=== PATIENT | male | born 1995 | race African-American/Black ===

== ENCOUNTER 2020-08-27 23:55 | Emergency (ER) | payer OTHER, SELFPAY ==
--- OUTSIDE RECORDS SUMMARY | 2020-08-27 23:57 | XMS REPORT | Continuity of Care Document ---
:1995 Author Organization [facility] t Address [address] [place] [address] Care Team Providers Name Role Phone Zakia Mckeon DO Attending Clinician Problems This patient has no known problems. Allergies, Adverse Reactions, Alerts This patient has no known allergies or adverse reactions. Medications This patient has no known medications. Procedures This patient has no known procedures. Encounters Start End Encounter Admission Attending Care Care Encounter Source Date/Time Date/Time Type Type Clinicians Facility Department ID 2019-12-23 2019-12-24 Emergency [facility] [id number] 21:39:00 00:35:00 Luz Jacobo [id number] [facility] [id number] [place] [id number] Results This patient has no known results.
[2020-08-28] MEDS ORDERED: NA CHLORIDE 0.9% 2,000 ML ONE (00:36)
[2020-08-28 00:56] LABS: Absolute Lymphocytes (CBC) 1.7 K/uL (0.7-4.9); Basophils % 0.3 % (0-1.3); Hematocrit 45.7 % (39.6-49.0); Lymphocytes % 10.7 % (15.3-44.8); MPV 8.1 fL (7.6-11.3); RBC Red Blood Cell Count 4.98 M/uL (4.33-5.43)
[2020-08-28 01:07] LABS: Protime INR 1.11
[2020-08-28 01:29] LABS: Albumin 4.7 g/dL (3.4-5.0); Bilirubin Direct 0.3 mg/dL (0-0.2); Bilirubin Total 1.7 mg/dL (0.2-1.0); Protein, Total 8.8 g/dL (6.4-8.2)
[2020-08-28 01:30] LABS: Potassium 3.5 mmol/L (3.5-5.1)
[2020-08-28] MEDS ORDERED: NA CHLORIDE 0.9% 1,000 ML ONE (02:46)
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
[2020-08-28 12:20] VITALS: BP 118/93; TEMP 98.2; O2SAT 97
--- NOTE | 2020-08-28 12:46 | EKG ---
Test Date: 2020-08-28 Test Time: 00:23:28 [employer] Leader: MARIE MEASUREMENT RESULTS: Intervals: Rate: 100 OK: 134 QRSD: 124 QT: 384 QTc: 495 [place]: P: 79 OK: 134 QRS: 93 T: 42 INTERPRETIVE STATEMENTS: Normal sinus rhythm Right bundle branch block Abnormal ECG No previous ECG available for comparison Electronically Signed On 08-28-20 12:45:20 CDT by Eldon Gill
--- NOTE | 2020-08-28 13:17 | RAD REPORT ---
EXAM DESCRIPTION: CT - Head C Spine Cap W Con - 08/28/2020 6:32 am ADDENDUM #1 THIS REPORT CONTAINS FINDINGS THAT MAY BE CRITICAL TO PATIENT CARE: The findings were verbally discus sed via telephone conference with Dr. Speedy Goyal on 08/28/2020 3:20 AM CDT. The results were ackn owledged and understood. Electronically signed by: Fernando Alvarez MD 08/28/2020 3:20 AM CDT End of Addendum EXAM DESCRIPTION: CT HEAD WITHOUT IV CONTRAST CLINICAL HISTORY: PAIN TECHNIQUE: Contiguous axial CT images obtained through the brain without IV contrast. Coronal and sa gittal reformatted images were provided. This exam was performed according to our departmental dose-optimization program, which includes autom ated exposure control, adjustment of the mA and/or kV according to patient size and/or use of iterati ve reconstruction technique. COMPARISON: None available for comparison FINDINGS: Brain: No significant white matter changes. No focal mass effect. Joshi-white matter differ entiation is within normal limits. No hemorrhage. Ventricles: No ventriculomegaly or midline shift. Extra-axial spaces: No extra-axial collection or hemorrhage. Paranasal sinuses and mastoid air cells: Mild left maxillary sinus mucosal thickening. Vessels: Unremarkable Bones: Unremarkable Soft tissues: Mild right occipital soft tissue swelling. PROCEDURE: CT CERVICAL SPINE WITHOUT IV CONTRAST CLINICAL HISTORY: PAIN TECHNIQUE: Contiguous axial CT images obtained through the cervical spine without IV contrast. Coron al and sagittal reformatted images also provided. This exam was performed according to our departmental dose-optimization program, which includes autom ated exposure control, adjustment of the mA and/or kV according to patient size and/or use of iterati ve reconstruction technique. COMPARISON: None available for comparison FINDINGS: Vertebra: No acute fracture or subluxation. Disc spaces: Intervertebral disc spaces are fairly well maintained. Mild anterior osteophytic lipping at C5-C6. No canal stenosis. Prevertebral soft tissues: Unremarkable EXAM DESCRIPTION: CT CHEST WITH IV CONTRAST CLINICAL HISTORY: PAIN TECHNIQUE: Contiguous axial images obtained through the chest following the uneventful administratio n of IV contrast. Coronal and sagittal reformatted images provided. This exam was performed according to our departmental dose-optimization program, which includes autom ated exposure control, adjustment of the mA and/or kV according to patient size and/or use of iterati ve reconstruction technique. COMPARISON: No prior exams provided for comparison. FINDINGS: Lungs: Scattered right apical and lower lobe groundglass opacities. Airways are patent. Pleura: No effusion. Tiny left pneumothorax. Heart and pericardium: The heart is normal in size. No pericardial effusion. Mediastinum and gilda: Soft tissue density within the anterior superior mediastinum. No pathologically enlarged lymph nodes. Lower neck and chest wall: Soft tissue gas foci along the lateral aspect of the left lateral pectoral is region. Mild asymmetric enlargement and heterogeneity of the right pectoralis. Mild adjacent super ficial soft tissue edema. Vessels: Unremarkable Bones: Mildly displaced fracture along the left lateral aspect of the manubrium at the attachment of the 1st costal cartilage (series 702 image 56 and series 701 image 18). Minimal anterior superior com pression deformity at T4 which appears fairly well corticated. EXAM DESCRIPTION: CT ABDOMEN PELVIS WITH IV CONTRAST CLINICAL HISTORY: PAIN TECHNIQUE: Contiguous axial images obtained through the abdomen and pelvis following the uneventful administration of IV contrast. Coronal and sagittal reformatted images were provided. This exam was performed according to our departmental dose-optimization program, which includes autom ated exposure control, adjustment of the mA and/or kV according to patient size and/or use of iterati ve reconstruction technique. COMPARISON: None available for comparison. FINDINGS: Artifacts: Streak artifact from patient arm positioning. Liver: Grossly unremarkable Gallbladder and biliary system: Unremarkable Pancreas: Grossly unremarkable Spleen: Grossly unremarkable Adrenals: Unremarkable Kidneys: Normal renal cortical enhancement. No calculi. Early excretion of contrast within the proxim al renal collecting systems bilaterally. No hydronephrosis. Bowel: No obstruction. No appreciable mucosal thickening. Appendix: Normal caliber appendix. No findings to suggest acute appendicitis. Urinary bladder: Unremarkable Reproductive: Unremarkable as visualized Lymph nodes: No pathologically enlarged lymph nodes. Peritoneum: No focal fluid collection. No free air. Vessels: No abdominal aortic aneurysm. Abdominal wall: Unremarkable Bones: No acute fracture IMPRESSION: CT HEAD: No acute intracranial or extra-axial abnormality. CT CERVICAL SPINE: No acute injury. CT CHEST: 1. Scattered right apical and lower lobe groundglass opacities which may reflect pulmonary contusio n in the setting of trauma. Imaging features can be seen with viral pneumonia, though are nonspecific and can occur with a variety of infectious and noninfectious processes. PneInd Reference: https://pu bs.rsna.org/doi/full/[email or web address] 2. Tiny left pneumothorax. 3. Left manubrial fracture. Anterior mediastinal hemorrhage. 4. Mild asymmetric enlargement and heterogeneity of the right pectoralis region. Mild adjacent supe rficial soft tissue edema. Findings may be related to an underlying hematoma. Soft tissue gas foci al raffy the lateral aspect of the left lateral pectoralis region thought secondary to penetrating trauma/ laceration. 5. Slight anterior superior compression deformity at T4 which appears fairly well corticated sugges ting remote trauma. Please correlate with point tenderness in the setting of an acute fracture. CT ABDOMEN PELVIS: Allowing for artifact from patient arm positioning, no evidence for hollow or solid organ injury. Electronically signed by: Fernando Alvarez MD 08/28/2020 3:14 AM CDT Due to temporary technical issues with the PACS/Fluency reporting system, reports are being signed by the in house radiologists without review as a courtesy to insure prompt reporting. The interpreting radiologist is fully responsible for the content of the report.
== END 2020-08-28 04:26 | disposition short-term general hospital (02) ==
LOC: ER 23:55
DX: S27.0XXA Traumatic pneumothorax, initial encounter (principal); S22.21XA Fracture of manubrium, initial encounter for closed fracture; S22.049A Unspecified fracture of fourth thoracic vertebra, initial encounter for closed fracture; S27.329A Contusion of lung, unspecified, initial encounter; S20.211A Contusion of right front wall of thorax, initial encounter; G44.309 Post-traumatic headache, unspecified, not intractable; M62.82 Rhabdomyolysis; N17.9 Acute kidney failure, unspecified; V03.90XA Pedestrian on foot injured in collision with car, pick-up truck or van, unspecified whether traffic or nontraffic accident, initial encounter; Y35.833A Legal intervention involving a conducted energy device, suspect injured, initial encounter; Z88.0 Allergy status to penicillin
CPT/HCPCS: 36415; 70450; 71045; 71260; 72125; 74177; 80048; 80076; 80320; 82150; 82550; 82565; 83690; 85025; 85610; 86850; 86900; 86901; 93005; 96360; 96361; 99285; G0390; J7030; Q9967; U0003